=== PATIENT | male | born 1985 | race Caucasian/White ===

== ENCOUNTER 2016-12-28 05:06 | Day surgery (SDC) | payer MEDICARE ==
[2016-12-27 08:49] LABS: HEMATOCRIT 48.9 % (42.0-54.0); MCH 30.6 pg (26.0-34.0); MCHC 32.7 g/dL (31.0-37.0); MCV 93.5 fL (80.0-100.0); MEAN PLATELET VOLUME 10.3 fL (7.4-10.4); RBC 5.23 10x6/uL (4.20-6.10); RDW 13.5 % (11.5-14.5); WBC 10.9 10x3/uL (4.8-10.8)
[~2016-12-28] VITALS: Ht 193 cm; Wt 171.5 kg
[~2016-12-28 05:06] MED LIST: BACTRIM DS TABL1 TAB PO; RITALIN20 MG PO
[2016-12-28 06:55] VITALS: BP 144/99; Ht 193 cm; Wt 171.5 kg
[2016-12-28] MEDS ORDERED: NORCO 7.5/325 T1 TA1 PO (09:30)
--- NOTE | 2016-12-28 14:35 | NUR ---
1040--PT COMPLAINS OF PAIN, RATES PAIN 12/31. NORCO 5/325MG X2 GIVEN PO FOR PAIN, PT DENIES FURTHER NEEDS AT THIS TIME. WILL CONTINUE TO MONITOR. DULCE MARIA BURROWS
--- NOTE | 2016-12-28 14:36 | NUR ---
1140--PT VOIDS, IV DC'D WITH [facility]HEL[facility] INTACT. DULCE MARIA RN 1155--NAGI DRAIN EMPTIED, 20 CC DARK RED BLOODY FLUID DRAINED. DULCE MARIA RN 1205--DISCHARGE INSTRUCTIONS GIVEN TO PT AND PT'S MOTHER, PT VERBALIZES UNDERSTANDING. DULCE MARIA BURROWS
--- NOTE | 2016-12-28 17:40 | OP ---
PATIENT NAME: LIZ FISHER MEDICAL RECORD: [id number] :85 [facility] DATE: SURGEON: DAMEON KRISHNAN MD DATE OF OPERATION: 12/28/2016 SURGEON: Dameon Krishnan MD. PREOPERATIVE DIAGNOSES: 1. Pilonidal cyst without abscess. 2. Morbid obesity. POSTOPERATIVE DIAGNOSES: 1. Pilonidal cyst without abscess. 2. Morbid obesity. PROCEDURE PERFORMED: Pilonidal cystectomy. ANESTHESIA: General. SPECIMENS: Excisional biopsy of pilonidal cyst 8 cm in length, 6 cm in width, 10 cm in depth. COMPLICATIONS: None. ESTIMATED BLOOD LOSS: 20 cc. OPERATIVE COURSE: After the consent was obtained, the patient was taken to the operating room. He was intubated via endotracheal intubation on stretcher. He was then placed into the prone position on the operating table. A timeout was taken to confirm the correct patient and procedure. The gluteal area was prepped and draped in typical sterile fashion. A 20 cc of local anesthetic were administered. Two sinus tract openings were identified in the gluteal cleft. A lacrimal probe was placed. An angiocatheter was then placed in the sinus tracts, methylene blue was administered. An elliptical skin incision was made approximately 8 cm in length, 6 cm in width. Skin incision made with a 10 blade scalpel. Thereafter, the dissection continued with electrocautery. The cyst wall was identified. There was significant staining of the cyst wall with a methylene blue. The cyst wall was excised intact using electrocautery. Dissection continued down to the level of the sacrum. The inferior portion of this cavity was dissected off the sacrum using electrocautery. The specimen was approximately 6 cm in width and 10 cm in depth. Once the specimen was excised, it was sent for permanent pathology. The wound bed was copiously irrigated and suctioned. Careful attention was paid to hemostasis. Next, advancement flaps were created. The subcutaneous tissue was dissected off the posterior gluteal fascia circumferentially to allow for mobilization. Next, a 10 flat NAGI drain was placed into the wound bed and delivered through the skin incision on the right side. The wound was closed in 3 layers, the deep subcutaneous tissue was closed with 2-0 Stratafix, the superficial subcutaneous tissues was closed with 2-0 Stratafix and skin was closed with a 3-0 subcuticular Stratafix PDS. A #1 nylon retention sutures were placed in an interrupted vertical mattress fashion. At the end of the case, all needle and instrument counts were correct. No complications occurred. The patient was extubated and transferred to the PACU in stable condition. TRANSINT:[id number] Voice Confirmation ID: [id number] DOCUMENT ID: [id number] OPERATIVE REPORT [id number] LIZ FISHER,DAMEON Bobby MD at 1740 CC: [id number] DICTATION DATE: 12/28/16928 EMS COORDINATOR: 12/28/16 1232 [facility] [place] 12/28/16 [facility] [address] [place] [address]
== END 2016-12-28 12:05 | disposition home or self-care (01) ==
LOC: D.OPS 05:06 → D.PAN 08:00 → D.OPS 08:00
PROVIDERS: Anesthesiology
DX: L05.91 Pilonidal cyst without abscess (principal); E66.01 Morbid (severe) obesity due to excess calories

== ENCOUNTER 2017-04-21 11:13 | Emergency (ER) | payer MEDICARE ==
[2016-12-28 06:55] VITALS: BMI 46.1
[~2017-04-21 11:13] MED LIST changes: +NORCO 7.5/325 T1 TA1 PO
== END 2017-04-21 13:16 | disposition home or self-care (01) ==
LOC: D.ER 11:13
DX: K64.9 Unspecified hemorrhoids (principal); R15.9 Full incontinence of feces; F17.200 Nicotine dependence, unspecified, uncomplicated